=== PATIENT | female | born 1995 | race African-American/Black ===

== ENCOUNTER 2024-10-17 21:08 | Inpatient (IN) | payer OTHER ==
[2024-10-17] MEDS ORDERED: Ondansetron PF 4 MG/2 ML Vial ONE (21:38)
[2024-10-17 21:44] LABS: #Basophils Less than 0.03 10x3/uL (0.0-0.2); #Eosinophils 0.05 10x3/uL (0.0-0.5); #Monocytes 0.67 10x3/uL (0.0-1.1); #Neutrophils 5.84 10x3/uL (1.5-8.4); %Basophils 0.2 % (0.0-2.0); %Eosinophils 0.6 % (0.0-6.0); %Lymphocytes 23.9 % (18.0-47.0); %Monocytes 7.7 % (0.0-10.0); %Neutrophils 67.4 % (40.0-75.0); Hematocrit 35.9 % (34.9-44.5); Hemoglobin 12.0 g/dL (12.0-15.5); Mean Corpuscular Hemoglobin 25.7 pg (27.0-33.0); Mean Corpuscular Volume 76.9 fL (81.6-98.3); Platelet Count 269 10x3/uL (150-450); Red Blood Cell (RBC) Count 4.67 10x6/uL (3.90-5.03); White Blood Cell (WBC) Count 8.67 10x3/uL (3.5-10.5)
[2024-10-17 22:04] LABS: BHCG - Serum POSITIVE (NEGATIVE)
[2024-10-17 22:05] LABS: ALT (SGPT) 17 U/L (Less than 34); AST (SGOT) 31 U/L (11-34); Albumin 3.6 g/dL (3.1-4.5); Alkaline Phosphatase 122 U/L (40-110); Anion Gap 18 mmol/L (10-20); BUN (Urea Nitrogen) 6 mg/dL (7.0-18.7); Bilirubin, Total 0.7 mg/dL (0.3-1.2); Calc. Creatinine Clearance 0 mL/min (70-130); Calcium 9.2 mg/dL (7.8-10.44); Carbon Dioxide 18 mmol/L (22-29); Chloride 99 mmol/L (98-107); Globulin 4.6 g/dL (2.4-3.5); Lipase 18 U/L (8-78); Magnesium 1.7 mg/dL (1.6-2.6); Potassium 4.7 mmol/L (3.5-5.1); Pregs Control Background? CLEAR/WHITE (CLR/WHITE); Pregs Control Bar Appear? YES (CONTROL BAR); Sodium 130 mmol/L (136-145)
[2024-10-17 22:05] LABS: Actual Bicarbonate (HCO3v) 22.7 mEq/L (22-28); Analyzer IN Cardio CS ER; Base Excess -2.6 mEq/L (-2 - +2); Calcium, Ionized (venous) 1.16 mmol/L (1.16-1.32); Chloride (VBG) 98 mmol/L (98-106); Critical Notified By: CP.PH; Hematocrit-VBG 38 % (36.0-47.0); Hemoglobin (Hb) 13.0 g/dL (11.7-15.5); Potassium (VBG) 3.76 mmol/L (3.70-5.30); Puncture Site Other Site; RapidComm Collect By LAB.CMJ; Sodium 133 mmol/L (133-146)
[2024-10-17 22:07] LABS: Glucose 522 mg/dL (70-105)
[2024-10-18] MEDS ORDERED: Dextrose 50% Abboject 50 ML SYRINGE SLOW IVP PRN (00:31)
[2024-10-18] MEDS ORDERED: Glucagon 1 MG/ML KIT IM PRN (00:31)
[2024-10-18 01:48] LABS: HIV (1/2) Antibody/Antigen Non-Reactive (NonReactive); HIV 1/2 INDEX 0.05 S/CO (<1.00); Hep B Surf Ag Non-Reactive S/CO (NonReactive)
[2024-10-18 01:49] LABS: Syphilis Antibody Index 0.11 S/CO (<1.00 Non-Reactive)
[2024-10-18] MEDS ORDERED: Calcium Carbonate 500 MG ChewTAB PO PRN (02:01)
[2024-10-18] MEDS: Acetaminophen 500 MG TAB PO PRN (02:14)
[2024-10-18 08:13] LABS: Glucose, Urine (Dipstick) >=1000 mg/dL (Negative); Leukocyte 500 (Negative); Protein, Urine (Dipstick) 15 mg/dl (Neg-Trace); Specific Gravity, Urine 1.010 (1.005-1.030)
[2024-10-18 08:21] LABS: Cocaine Metabolite Screen Negative (Negative); THC/Cannabinoid Screen Negative (Negative); Tricyclic Screen Negative (Negative)
[2024-10-18 09:01] LABS: Bacteria/HPF 4+ HPF (None Seen); CAUTI Indications for Culture Pelvic or flank pain; WBC/HPF Greater Than 50 HPF (0-3); Yeast-Budding Rare HPF (None Seen)
[2024-10-18 09:02] LABS: Urine Culture Reflex Yes Yes
[2024-10-18] MEDS: Ondansetron PF 4 MG/2 ML Vial IVP PRN (12:02)
[2024-10-18] MEDS: Lantus 1000 UNITS/10 ML VIAL SC SCH (15:54)
[2024-10-18] MEDS: Clotrimazole 2% 3 Day Vag Cr 22.2 GM TUBE VAG SCH (20:43)
[2024-10-19 06:06] LABS: Chlamydia by PCR, Vaginal Swab Not Detected (NotDetected); GC by PCR, Vaginal Swab Not Detected (NotDetected)
[2024-10-19] MEDS: Lantus 1000 UNITS/10 ML VIAL SC SCH (07:35)
[2024-10-19 10:43] LABS: Anion Gap 11 mmol/L (10-20); BUN (Urea Nitrogen) 5 mg/dL (7.0-18.7); Calc. Creatinine Clearance 0 mL/min (70-130); Calcium 8.9 mg/dL (7.8-10.44); Carbon Dioxide 22 mmol/L (22-29); Chloride 106 mmol/L (98-107); Glucose 108 mg/dL (70-105); Potassium 3.5 mmol/L (3.5-5.1); Sodium 135 mmol/L (136-145)
[2024-10-19 11:28] VITALS: BP 108/75; TEMP 98.3
== END 2024-10-19 11:20 | disposition left against medical advice (07) | DRG 832 ==
LOC: CSHERS 21:08 → CSHPP 10-18 00:41
PROVIDERS: ADMIT Obstetrics & Gynecology; ATTEND Obstetrics & Gynecology
DX: O24.012 Pre-existing type 1 diabetes mellitus, in pregnancy, second trimester (principal); E87.1 Hypo-osmolality and hyponatremia; O26.612 Liver and biliary tract disorders in pregnancy, second trimester; O99.612 Diseases of the digestive system complicating pregnancy, second trimester; K21.9 Gastro-esophageal reflux disease without esophagitis; O99.342 Other mental disorders complicating pregnancy, second trimester; F41.8 Other specified anxiety disorders; O24.419 Gestational diabetes mellitus in pregnancy, unspecified control; Z88.0 Allergy status to penicillin; Z90.49 Acquired absence of other specified parts of digestive tract; Z88.8 Allergy status to other drugs, medicaments and biological substances; Z53.29 Procedure and treatment not carried out because of patient's decision for other reasons
CPT/HCPCS: 36415; 36416; 76815; 80048; 80053; 80306; 81001; 82010; 82805; 83036; 83690; 83735; 84100; 84702; 84703; 85025; 86762; 86780; 86850; 86900; 86901; 87077; 87086; 87186; 87340; 87389; 87480; 87491; 87510; 87591; 87660; 96374; J1815; J2550; J7120

== ENCOUNTER 2024-10-26 14:50 | Emergency (ER) | payer OTHER ==
[2024-10-26 15:58] LABS: Actual Bicarbonate (HCO3v) 21.5 mEq/L (22-28); Analyzer IN Cardio CS ER; Base Excess -3.1 mEq/L (-2 - +2); Calcium, Ionized (venous) 1.17 mmol/L (1.16-1.32); Chloride (VBG) 97 mmol/L (98-106); Hematocrit-VBG 39 % (36.0-47.0); Hemoglobin (Hb) 13.3 g/dL (11.7-15.5); Potassium (VBG) 3.95 mmol/L (3.70-5.30); Puncture Site Other Site; RapidComm Collect By LAB; Sodium 132 mmol/L (133-146)
[2024-10-26 16:09] LABS: #Basophils Less than 0.03 10x3/uL (0.0-0.2); #Eosinophils 0.04 10x3/uL (0.0-0.5); #Monocytes 0.75 10x3/uL (0.0-1.1); #Neutrophils 6.07 10x3/uL (1.5-8.4); %Basophils 0.2 % (0.0-2.0); %Eosinophils 0.5 % (0.0-6.0); %Lymphocytes 20.4 % (18.0-47.0); %Monocytes 8.6 % (0.0-10.0); %Neutrophils 70.0 % (40.0-75.0); Hematocrit 35.1 % (34.9-44.5); Hemoglobin 11.8 g/dL (12.0-15.5); Mean Corpuscular Hemoglobin 25.8 pg (27.0-33.0); Mean Corpuscular Volume 76.8 fL (81.6-98.3); Platelet Count 333 10x3/uL (150-450); Red Blood Cell (RBC) Count 4.57 10x6/uL (3.90-5.03); White Blood Cell (WBC) Count 8.68 10x3/uL (3.5-10.5)
[2024-10-26 16:14] LABS: Glucose, Urine (Dipstick) >=1000 mg/dL (Negative); Leukocyte 100 (Negative); Protein, Urine (Dipstick) 15 mg/dl (Neg-Trace); Specific Gravity, Urine 1.010 (1.005-1.030)
[2024-10-26 16:29] LABS: ALT (SGPT) 14 U/L (Less than 34); AST (SGOT) 15 U/L (11-34); Albumin 3.5 g/dL (3.1-4.5); Alkaline Phosphatase 104 U/L (40-110); Anion Gap 15 mmol/L (10-20); BUN (Urea Nitrogen) 5 mg/dL (7.0-18.7); Bilirubin, Total 0.7 mg/dL (0.3-1.2); Calc. Creatinine Clearance 0 mL/min (70-130); Calcium 9.6 mg/dL (7.8-10.44); Carbon Dioxide 22 mmol/L (22-29); Chloride 98 mmol/L (98-107); Globulin 4.5 g/dL (2.4-3.5); Lipase 8 U/L (8-78); Potassium 4.0 mmol/L (3.5-5.1); Sodium 131 mmol/L (136-145)
[2024-10-26 16:35] LABS: Glucose 409 mg/dL (70-105)
[2024-10-26 16:49] LABS: RBC/HPF 0-3 HPF (0-3)
[2024-10-26 16:50] LABS: Bacteria/HPF 3+ HPF (None Seen); CAUTI Indications for Culture Pregnancy
[2024-10-26 16:51] LABS: Urine Culture Reflex Yes Yes
== END 2024-10-26 18:25 | disposition home or self-care (01) ==
LOC: CSHERS 14:50
DX: O21.9 Vomiting of pregnancy, unspecified (principal); O23.42 Unspecified infection of urinary tract in pregnancy, second trimester; N39.0 Urinary tract infection, site not specified; O24.312 Unspecified pre-existing diabetes mellitus in pregnancy, second trimester; E11.40 Type 2 diabetes mellitus with diabetic neuropathy, unspecified; Z3A.15 15 weeks gestation of pregnancy
CPT/HCPCS: 36416; 76815; 80053; 81001; 82010; 82805; 83690; 85025; 87077; 87086; 93005; 99284